=== PATIENT | male | born 1980 | race Caucasian/White ===

== ENCOUNTER 2019-11-30 10:17 | Emergency (ER) | payer BC, MEDICAID, SELFPAY ==
[2019-11-30 10:25] VITALS: BP 151/82; PULSE 87; RESP 14; TEMP 36.7; O2SAT 99
--- NOTE | 2019-11-30 10:48 | ED.URI ---
HPI - URI/Sore Throat General Chief Complaint: Upper Respiratory Infection Stated Complaint: Pnemonia Symptoms Time Seen by Provider: 11/30/19 10:48 Source: patient and RN notes reviewed History of Present Illness HPI Narrative: Patient is a 39-year-old male that presents the urgent care with complaints of cough, history of fever over the last 48 hours, and some intermittent shortness of breath. Patient states that he called his PCP this morning and he was told to rule out pneumonia at the local urgent care because their office was currently close to sick visits . Patient denies any travel over the last 14 days or being exposed to any known positive COVID patients or anyone out of the country for the last 14 days. 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 Patient has been using TheraFlu and Tylenol. No other acute complaints. No acute distress noted. Patient read the plan of care. Related Data Home Medications Medication Instructions Recorded Confirmed atenolol 50 mg PO DAILY 11/30/19 11/30/19 atorvastatin 10 mg PO DAILY 11/30/19 11/30/19 insulin glargine [Lantus U-100 22 unit SUBCUT HS 11/30/19 11/30/19 Insulin] metformin 1,000 mg PO DAILY 11/30/19 11/30/19 Allergies Allergy/AdvReac Type Severity Reaction Status Date / Time sumatriptan Allergy Intermediate Palpitation Verified 11/30/19 10:33 s Review of Systems Review of Systems: Narrative: CONSTITUTIONAL: Reports of intermittent fevers EYES: Denies visual changes, redness, or discharge. ENT: Denies rhinorrhea, congestion, sore throat, or otalgia. CARDIOVASCULAR: Denies chest pain, palpitations, or edema. RESPIRATORY: Reports of mild cough without dyspnea GASTROINTESTINAL: Denies abdominal pain, nausea, vomiting, or diarrhea. GENITOURINARY: Denies dysuria or hematuria. SKIN: Denies rash or itching. MUSCULOSKELETAL: Denies back pain, joint pain, or myalgia. NEUROLOGIC: Denies headache, numbness, or weakness. All other systems reviewed are negative, except as documented in HPI. PMFSH Comments At the time of my signature, I reviewed and agree with the nursing past medical, surgical, social, and family history. There is no relevant family history pertinent to the patient complaint. Exam Narrative: Exam Narrative: GENERAL: This is a well-nourished, well-developed patient, in no apparent distress. HEAD: normocephalic, atraumatic. EYES: PERRL. Sclera clear/white. Vision is grossly intact. EARS: External ears normal, auditory canals clear and without drainage, TMs normal without perforation. Hearing grossly intact. NOSE: External nose normal with no obvious nasal discharge, nares without redness, no rhinorrhea. THROAT: Mucous membranes moist, posterior pharynx clear. NECK: Neck supple, non-tender without lymphadenopathy, masses or thyromegaly. CARDIOVASCULAR: Regular rate and rhythm without murmurs, gallops, or rubs. RESPIRATORY: Clear to auscultation. Breath sounds equal bilaterally. No wheezes, rales, or rhonchi. SKIN: warm, intact with no suspicious lesions or rash, good texture and turgor. NEURO: awake, alert, and oriented to person, place and time. There were no obvious focal neurologic abnormalities. EXTREMITIES: No clubbing, cyanosis, or edema. Course Vital Signs Vital signs: Vital Signs Temperature 98.1 F 11/30/19 10:25 Pulse Rate 87 11/30/19 10:25 Respiratory Rate 14 11/30/19 10:25 Blood Pressure 151/82 H 11/30/19 10:25 Pulse Oximetry 99 11/30/19 10:25 Temperature 98.1 F 11/30/19 10:25 Pulse Rate 87 11/30/19 10:25 Respiratory Rate 14 11/30/19 10:25 Blood Pressure 151/82 H 11/30/19 10:25 Pulse Oximetry 99 11/30/19 10:25 Reviewed?patient is informed that they may have pre-hypertension or hypertension based on a blood pressure reading in the department. I recommend the patient call the primary care provider listed on their discharge instructions or a physician of their choice this week to
== END 2019-11-30 11:18 | disposition home or self-care (01) ==
PROVIDERS: Emergency Provider Nurse Practitioner Family
DX: R05 Cough (principal); E78.00 Pure hypercholesterolemia, unspecified; I10 Essential (primary) hypertension; E11.9 Type 2 diabetes mellitus without complications
CPT/HCPCS: 99211; G0463

== ENCOUNTER 2020-06-09 09:26 | Outpatient (CLI) | payer BC, MEDICAID, SELFPAY ==
--- NOTE | ~2020-06-09 | XR_ITS ---
EXAMINATION: XR lumbar spine 2-3V DATE: 06/09/2020 09:56 INDICATION: Low back pain and chronic right lower limb radiculopathy. TECHNIQUE: Anteroposterior and lateral views of the lumbar spine, and cone-down lateral view of the l umbosacral junction were obtained. COMPARISON: CT abdomen and pelvis dated 02/10/2019 FINDINGS: Alignment is normal. Chronic mild anterior wedging at T12 and L1. Moderate disc height loss at T12-L1 and mild disc height loss at T10-T11, L1-L2, L2-L3, L4-L5 and L5-S1. Mild to moderate lumbar facet o steoarthritis at L4-L5 and L5-S1. Sacrum and bilateral sacroiliac joints are normal. IMPRESSION: 1. Mild to moderate lumbar spondylosis. Reviewed, dictated and finalized at location A.
--- NOTE | ~2020-06-09 | XR_ITS ---
EXAMINATION:XR cervical spine 4-5V DATE: 06/09/2020 09:56 INDICATION: Neck pain TECHNIQUE: AP, lateral, lateral swimmers and odontoid views of the cervical spine are provided. COMPARISON: None FINDINGS: Alignment is normal. Odontoid is intact. Normal atlantoaxial interval. Vertebral body heights are no rmal. Mild disc height loss and moderate bilateral uncovertebral osteoarthritis at C5-C6. Small poste rior endplate osteophyte at this level results in mild central canal stenosis. Remaining disc heights are normal. Prevertebral soft tissues are normal. Visualized apices of the lungs are clear. IMPRESSION: 1. Mild spondylosis at C5-C6. Reviewed, dictated and finalized at location A.
== END 2020-06-09 09:27 | disposition home or self-care (01) ==
PROVIDERS: PCP Physician Assistant; Visit Provider Physician Assistant
DX: M54.2 Cervicalgia (principal); M54.5 Low back pain; M47.816 Spondylosis without myelopathy or radiculopathy, lumbar region; M47.812 Spondylosis without myelopathy or radiculopathy, cervical region
CPT/HCPCS: 72050; 72100

== ENCOUNTER 2020-07-21 08:26 | Outpatient (CLI) | payer BC, MEDICAID, SELFPAY ==
--- NOTE | ~2020-07-21 | MR_ITS ---
EXAMINATION: MR cervical spine wo con EXAM DATE: 07/21/2020 09:10 INDICATION: Neck pain. TECHNIQUE: Multi-sequential, multiplanar MR images of the cervical spine were obtained without contra st. Axial T2, axial T2 MERGE sequence. Sagittal T1, T2, T2 fat saturation images also obtained. Th ere is no prior study for comparison. FINDINGS: Large hemangioma within the T1 vertebral body. Mild disc disease at C5-6. The vertebral ramon dy and disc heights are otherwise well maintained. The vertebral bodies are aligned in the AP dimensi on. The spinal cord signal intensity and intrinsic morphology is normal. Cervicomedullary junction is normal in appearance. Paraspinal soft tissue is unremarkable. Level by level evaluation: C2-C3: Disc does not extend beyond the endplate margin. Uncovertebral joint arthropathy: None. Facet joint arthropathy: None. Neural foraminal stenosis: No stenosis. Central canal stenosis: No stenosis. C3-C4: Disc does not extend beyond the endplate margin. Uncovertebral joint arthropathy: None. Facet joint arthropathy: Mild. Neural foraminal stenosis: No stenosis. Central canal stenosis: No stenosis. C4-C5: Disc does not extend beyond the endplate margin. Uncovertebral joint arthropathy: None. Facet joint arthropathy: Mild. Neural foraminal stenosis: No stenosis. Central canal stenosis: No stenosis. C5-C6: There is a disc bulge asymmetric to the left. Uncovertebral joint arthropathy: Moderate to severe bilateral. Facet joint arthropathy: Mild bilateral. Neural foraminal stenosis: Severe right, moderate left. Central canal stenosis: Mild. C6-C7: There is a minimal diffuse disc bulge. Uncovertebral joint arthropathy: Mild bilateral. Facet joint arthropathy: Minimal bilateral. Neural foraminal stenosis: Mild right. Central canal stenosis: No stenosis. C7-T1: Disc does not extend beyond the endplate margin. Uncovertebral joint arthropathy: None. Facet joint arthropathy: Minimal. Neural foraminal stenosis: No stenosis. Central canal stenosis: No stenosis. IMPRESSION: 1. C5-6 severe right, moderate left neural foraminal stenosis. 2. Otherwise mild cervical spondylosis. Reviewed, dictated and finalized at location A. [employer] ANALYST
== END 2020-07-21 08:27 | disposition home or self-care (01) ==
LOC: ANHIMG 08:30
PROVIDERS: PCP Physician Assistant; Visit Provider Physician Assistant
DX: D18.09 Hemangioma of other sites (principal); M47.813 Spondylosis without myelopathy or radiculopathy, cervicothoracic region; M48.03 Spinal stenosis, cervicothoracic region
CPT/HCPCS: 72141

== ENCOUNTER 2020-09-15 09:43 | Outpatient (CLI) | payer BC, MEDICAID, SELFPAY ==
[2020-09-15 10:08] LABS: Basophils Absolute Auto 0.1 K/mm3 (0.0-0.1); Basophils Percent Auto 0.9 % (0.2-1.2); Eosinophils Absolute Auto 0.1 K/mm3 (0-0.3); Eosinophils Percent Auto 1.8 % (0-4.4); Hematocrit 47.3 % (42.0-52.0); Hemoglobin 15.9 g/dL (14.0-18.0); Immature Granulocyte Absolute 0.02 K/mm3 (0.00-0.031); Immature Granulocyte Percent A 0.3 % (0-0.5); Lymphocytes Absolute Auto 1.97 K/mm3 (0.9-3.2); Lymphocytes Percent Auto 27.9 % (18.3-44.2); Mean Corpuscular HGB Conc 33.6 g/dl (32-36); Mean Corpuscular Hemoglobin 27.7 pg (26-34); Mean Corpuscular Volume 82.5 fl (80-100); Mean Platelet Volume 9.4 fl (7.4-10.4); Monocytes Absolute Auto 0.5 K/mm3 (0.1-0.6); Monocytes Percent Auto 6.4 % (2.6-8.5); Neutrophils Absolute Auto 4.4 K/mm3 (1.3-6.7); Neutrophils Percent Auto 62.7 % (45.5-73.1); Platelet Count Result 213 k/mm3 (150-375); Red Blood Count 5.73 M/mm3 (4.6-6.20); Red Cell Distribution Width 12.4 % (11.5-14.5); White Blood Count 7.1 K/mm3 (4.5-10.0)
[2020-09-15 10:23] LABS: Alanine Aminotransferase 182 U/L (4-50); Albumin Level 4.5 g/dL (3.5-5.1); Alkaline Phosphatase 95 U/L (38-126); Anion Gap 6 mmol/L (8-16); Aspartate Amino Transferase 93 U/L (17-59); Bilirubin,Total 0.8 mg/dL (0.2-1.3); Blood Urea Nitrogen 17 mg/dL (9-20); Calcium 9.7 mg/dL (8.4-10.2); Carbon Dioxide 31 mmol/L (22-30); Chloride 99 mmol/L (98-107); Cholesterol 224 mg/dL (0-200); Estimated Glomerular Filt Rate > 60; Glucose 297 mg/dL (75-110); HDL Direct 34 mg/dL; Potassium 5.1 mmol/L (3.4-5.0); Sodium 136 mmol/L (137-145); Triglycerides 254 mg/dL (<150)
[2020-09-15 10:33] LABS: LDL Cholesterol Direct 124 mg/dL
[2020-09-15 10:45] LABS: Creatinine Urine 136.6 mg/dL
[2020-09-15 10:47] LABS: MALB Creatinine Ratio 7.7 mg/g (0-30); Microalbumin Urine Random 10.5 mg/L (0-16.7)
[2020-09-20 12:24] LABS: Testosterone Free 52.4 pg/mL (35.0-155.0); Testosterone Total 280 ng/dL (250-1100)
== END 2020-09-15 09:44 | disposition home or self-care (01) ==
PROVIDERS: PCP Physician Assistant; Visit Provider Physician Assistant
DX: E11.9 Type 2 diabetes mellitus without complications (principal); R79.89 Other specified abnormal findings of blood chemistry
CPT/HCPCS: 36415; 80053; 80061; 82043; 83036; 84402; 84403; 85025

== ENCOUNTER 2020-12-13 10:13 | Outpatient (CLI) | payer BC, MEDICAID, SELFPAY ==
--- NOTE | ~2020-12-13 | XR_ITS ---
EXAMINATION:XR_CERV2-3V_CR DATE: 12/13/2020 10:44 INDICATION: Status post cervical fusion. TECHNIQUE: AP and lateral views of the cervical spine are provided. COMPARISON: 06/09/2020 FINDINGS: Interval anterior spinal fusion at the previously mild narrowed C5-C6 disc space. The disc space is n ow normal with marker for a lucent bone graft cage and anterior plate and screw fixation. A prior pos terior osteophyte arising from the inferior aspect of C5 has also been resected. Alignment is normal. Odontoid is intact. Normal atlantoaxial interval. Vertebral body heights are normal. Remaining disc spaces are normal. There is swelling of the prevertebral soft tissues centered at the level of the C 5-C6 anterior spinal fusion with small focus of gas in the soft tissues. IMPRESSION: 1. Soft tissue swelling and small amount of gas in the lower cervical prevertebral soft tissues posto perative in etiology given a new instrumentation anterior spinal fusion procedure at C5-C6 which was reportedly performed one week prior on 12/05/2020. Reviewed, dictated and finalized at location B. IMPRESSION: 1. Soft tissue swelling and small amount of gas in the lower cervical preverteb ral soft tissues postoperative in etiology given a new instrumentation anterior spinal fusion procedure at C5-C6 which was reportedly performed one week prior on 12/05/2020.
== END 2020-12-13 10:14 | disposition home or self-care (01) ==
LOC: ANHIMG 10:19
PROVIDERS: PCP Physician Assistant; Visit Provider Neurological Surgery
DX: Z98.1 Arthrodesis status (principal); M79.89 Other specified soft tissue disorders
CPT/HCPCS: 72040

== ENCOUNTER 2022-04-01 06:34 | Emergency (ER) | payer BC, OTHER, SELFPAY ==
[2022-04-01] VITALS (20 sets, daily range): BP systolic 128–159; BP diastolic 83–97; PULSE 105; RESP 18; TEMP 36.9; O2SAT 92–98
--- NOTE | ~2022-04-01 | CT_ITS ---
EXAMINATION: CT abdomen pelvis w con DATE: 04/01/2022 08:58 INDICATION: Intermittent right upper quadrant abdominal pain for 2 or 3 months, nausea and vomiting f or 2 to 3 hours. History of kidney stones. TECHNIQUE: Computed tomography (CT) of the abdomen and pelvis was performed with 100 CC Omnipaque 300 intravenous contrast. Automated exposure control and iterative reconstruction technique were employe d. Exam dose: 735.46 mGy-cm total exam DLP. COMPARISON: 04/01/2022 Limited abdominal ultrasound 02/10/2019 KUB 6. Slice 02/[address] abdomen pelvis FINDINGS: Chronic discoid scarring in the right anterior basilar lower lobe and mild bilateral lower lobe atelectasis. Normal heart size. No pericardial effusion. No pleural effusion. Diffuse hepatic steatosis. No hepatic, splenic, pancreatic, adrenal space-occupying mass lesion. The gallbladder is unremarkable. No bile duct or pancreatic duct dilatation. There are 3 up to approximately 2 mm nonobstructing right renal calculi There are 2 up to approximately 2.5 mm nonobstructing left renal calculi. No ureteral or urinary bladder calculus or hydroureteronephrosis of either kidney. 14 mm and 5 mm upper pole right renal cysts. 8 mm lower pole left renal cyst. Normal caliber of the abdominal aorta. No intraperitoneal or retroperitoneal or pelvic mass lesion or adenopathy or ascites. Normal appendix. No bowel obstruction, bowel wall thickening, pneumatosis or intraperitoneal free air . There is evidence of bilateral inguinal herniorrhaphy. Very small fat-containing umbilical hernia. Occasional osteosclerotic lesions including one measuring up to 1 cm in the right femoral head, most likely bone islands. If there is any concern for osteosclerotic metastatic disease clinically, consid er radionuclide bone scan. Mild degenerative changes of the lower thoracic and lumbar spine. No suspicious lytic lesions. IMPRESSION: Chronic right anterior basilar discoid scarring and mild bilateral lower lobe atelectasi s Diffuse hepatic steatosis Bilateral nonobstructive nephrolithiasis; no ureteral calculus or hydroureteronephrosis Normal appendix No bowel obstruction or free air Status post bilateral inguinal herniorrhaphy Occasional osseous chronic lesions, most likely bone islands; if there is concern for osteosclerotic metastatic disease as with prostate cancer, radionuclide bone scan may be of benefit Reviewed, dictated and finalized at Location A. Reviewed, dictated and finalized at location A. IMPRESSION: Chronic right anterior basilar discoid scarring and mild bilateral lower lobe atelectasis Diffuse hepatic steatosis Bilateral nonobstructive nephrolithiasis; no ureteral calculus or hydroureteron ephrosis Normal appendix No bowel obstruction or free air Status post bilateral inguinal herniorrhaphy Occasional osseous chronic lesions, most likely bone islands; if there is juan rn for osteosclerotic metastatic disease as with prostate cancer, radionuclide bone scan may be of benefit
--- NOTE | ~2022-04-01 | US_ITS ---
EXAMINATION: US abdomen limited DATE: 04/01/2022 08:18 INDICATION: Right upper quadrant abdominal pain TECHNIQUE: Multiple grayscale and Doppler ultrasound images of the abdomen were obtained. COMPARISON: CT dated 02/10/2019 FINDINGS: The pancreatic head and body are normal in appearance. The pancreatic tail is not visualized. Liver has normal contour, with a smooth surface. There is increased parenchymal echogenicity and coarsened echotexture consistent with diffuse hepatic steatosis. No liver lesion identified. No intrahepatic b iliary duct dilation suspected. Portal venous flow was seen in the hepatopetal, normal direction and has normal Doppler waveform. The gallbladder is normal in appearance. There is no cholelithiasis. Th e common bile duct measures 4-5 mm, which is normal. Sonographic Bermeo sign was reported as negative by the risk management specialist. IMPRESSION: 1. Diffuse hepatic steatosis. Reviewed, dictated and finalized at location A.
[2022-04-01 07:02] LABS: Basophils Absolute Auto 0.1 K/mm3 (0.0-0.1); Basophils Percent Auto 0.3 % (0.2-1.2); Eosinophils Absolute Auto 0.3 K/mm3 (0-0.3); Eosinophils Percent Auto 1.3 % (0-4.4); Hematocrit 50.3 % (42.0-52.0); Hemoglobin 16.6 g/dL (14.0-18.0); Immature Granulocyte Absolute 0.06 K/mm3 (0.00-0.031); Immature Granulocyte Percent A 0.3 % (0-0.5); Lymphocytes Absolute Auto 1.43 K/mm3 (0.9-3.2); Lymphocytes Percent Auto 7.6 % (18.3-44.2); Mean Corpuscular Hemoglobin 27.6 pg (26-34); Mean Corpuscular Volume 83.7 fl (80-100); Mean Platelet Volume 9.3 fl (7.4-10.4); Monocytes Absolute Auto 1.5 K/mm3 (0.1-0.6); Neutrophils Absolute Auto 15.5 K/mm3 (1.3-6.7); Neutrophils Percent Auto 82.5 % (45.5-73.1); Platelet Count Result 258 k/mm3 (150-375); Red Blood Count 6.01 M/mm3 (4.6-6.20); Red Cell Distribution Width 13.5 % (11.5-14.5); White Blood Count 18.8 K/mm3 (4.5-10.0)
[2022-04-01 07:03] LABS: Appearance Urine Clear (Clear); Bilirubin Urine Negative (Negative); Blood Urine Negative (Negative); Color Urine Yellow (Yellow); Glucose Urine UA 2+ mg/dL (Negative); Ketones Urine Trace mg/dL (Negative); Leukocyte Esterase Ur Negative LEU/UL (Negative); Nitrate Urine Negative (Negative); Protein Urine Negative (Negative); Specific Grav Ur 1.015 (1.001-1.035); Urobilinogen Urine 0.2 mg/dL (<2.0); pH Urine 5.5 (5.0-9.0)
[2022-04-01 07:06] LABS: Mucus Urine Rare /lpf; RBC Urine 0-2 /hpf (0-2); WBC Urine 0-3 /hpf
[2022-04-01 07:11] LABS: Alanine Aminotransferase 83 U/L (6-50); Albumin Level 4.7 g/dL (3.5-5.1); Alkaline Phosphatase 87 U/L (38-126); Anion Gap 11 mmol/L (8-16); Aspartate Amino Transferase 50 U/L (17-59); Bilirubin,Total 0.6 mg/dL (0.2-1.3); Blood Urea Nitrogen 18 mg/dL (9-20); Calcium 9.8 mg/dL (8.4-10.2); Carbon Dioxide 27 mmol/L (22-30); Chloride 102 mmol/L (98-107); Estimated CRCL calculation 116 ml/min; Estimated Glomerular Filt Rate > 60; Glucose 178 mg/dL (65-110); Lipase 106 U/L (23-300); Potassium 4.6 mmol/L (3.4-5.0); Sodium 140 mmol/L (137-145)
[2022-04-01 07:24] LABS: Add Urine Microscopic? YES
--- NOTE | 2022-04-01 07:33 | ED.GENADULT ---
HPI - General Adult General Chief complaint: Nausea/Vomiting/Diarrhea Stated complaint: abd pain with n/v x 3 months Time Seen by Provider: 04/01/22 07:08 History of Present Illness HPI narrative: Patient is a 41-year-old male who presents ER with right upper quadrant abdominal pain. Began at 2 AM. No radiation. Sharp in nature. Reports he has had it intermittently over the last couple months. First noticed it when he ate [employer] pizza and then later when he ate [employer] pizza. Reports he has tried Tums and Pepto-Bismol without improvement. He was evaluated at an outside hospital was found to have bilateral nonobstructing renal calculi. Patient was given Zofran at that time which has helped him when he has nausea. Related Data Home Medications Medication Instructions Recorded Confirmed atenolol 50 mg tablet 50 mg PO DAILY 11/30/19 11/30/19 atorvastatin 10 mg tablet 10 mg PO DAILY 11/30/19 11/30/19 insulin glargine 100 unit/mL 22 unit subcut HS 11/30/19 11/30/19 subcutaneous solution (Lantus U-100 Insulin) metformin 1,000 mg tablet 1,000 mg PO DAILY 11/30/19 11/30/19 Allergies Allergy/AdvReac Type Severity Reaction Status Date / Time sumatriptan Allergy Intermediate Palpitation Verified 04/01/22 06:45 s Review of Systems Review of Systems: All systems reviewed & are unremarkable except as noted in HPI and below Constitutional: Constitutional: Denies chills and Denies fever(s) Cardiovascular: Cardiovascular: Denies chest pain and Denies radiating jaw, neck or arm pain Gastrointestinal: Gastrointestinal: Reports abdominal pain, Reports nausea and Denies vomiting Genitourinary: Genitourinary: Denies hematuria, Denies dysuria and Denies urinary frequency [facility] Past Medical History Medical History (Updated 04/01/22 @ 10:17 by Damon Robledo MD) Diabetes Hypertension Kidney stones Surgical History Surgical History (Updated 04/01/22 @ 07:41 by Damon Robledo MD) H/O bilateral inguinal hernia repair H/O neck surgery History of carpal tunnel release of both wrists History of lithotripsy Social History Social History (Updated 04/01/22 @ 07:43 by Damon Robledo MD) Tobacco type: e-cigarettes/vaping Exam Narrative: GENERAL: Well-appearing, well-nourished, and in no acute distress. HEAD: Normocephalic, atraumatic. EYES: PERRL and EOMI. CHEST: Clear to auscultation. No respiratory distress. HEART: Regular rate and rhythm. Normal peripheral pulses. ABDOMEN: Soft, nontender, nondistended. EXTREMITIES: Normal range of motion. No edema. SKIN: Warm, dry, no rash. NEURO: Alert and oriented x3. PSYCH: Normal mood and affect. Course Course Emergency Course: Patient resting comfortably and without pain. Head several episodes of vomiting earlier this morning which may have caused his elevated white blood cell count. Otherwise no evidence of infection. Will treat for peptic ulcer with twice daily Protonix. Recommend follow-up with PCP and possible need for GI referral. Vital Signs Vital signs: Vital Signs Temperature 98.4 F 04/01/22 06:41 Pulse Rate 105 H 04/01/22 06:41 Respiratory Rate 18 04/01/22 06:41 Blood Pressure 136/95 H 04/01/22 06:41 Pulse Oximetry 98 04/01/22 06:41 Oxygen Delivery Room Air 04/01/22 06:41 Temperature 98.4 F 04/01/22 06:41 Pulse Rate 105 H 04/01/22 06:41 Respiratory Rate 18 04/01/22 06:41 Blood Pressure 136/95 H 04/01/22 06:41 Pulse Oximetry 98 04/01/22 06:41 Oxygen Delivery Room Air 04/01/22 06:41 Medical Decision Making Vital Signs Vital Signs: Vital Signs Temperature 98.4 F 04/01/22 06:41 Pulse Rate 105 H 04/01/22 06:41 Respiratory Rate 18 04/01/22 06:41 Blood Pressure 136/95 H 04/01/22 06:41 Pulse Oximetry 98 04/01/22 06:41 Oxygen Delivery Room Air 04/01/22 06:41 Temperature 98.4 F 04/01/22 06:41 Pulse Rate 105 H 04/01/22 06:41 Respiratory Rate 18 03/08
== END 2022-04-01 10:31 | disposition home or self-care (01) ==
PROVIDERS: Emergency Provider Emergency Medicine; PCP Physician Assistant
DX: R10.11 Right upper quadrant pain (principal); E11.9 Type 2 diabetes mellitus without complications; I10 Essential (primary) hypertension; F17.290 Nicotine dependence, other tobacco product, uncomplicated; Z87.442 Personal history of urinary calculi; K76.0 Fatty (change of) liver, not elsewhere classified; N20.0 Calculus of kidney; M89.9 Disorder of bone, unspecified; Z79.4 Long term (current) use of insulin; Z79.84 Long term (current) use of oral hypoglycemic drugs
CPT/HCPCS: 36415; 74177; 76705; 80053; 81001; 83690; 85025; 99284; Q9967

== ENCOUNTER 2023-12-09 14:22 | Emergency (ER) | payer OTHER, BC, SELFPAY ==
--- NOTE | ~2023-12-09 | XR_ITS ---
EXAMINATION: XR shoulder LT min 2V DATE: 12/09/2023 15:06 INDICATION: Left shoulder pain. TECHNIQUE: 4 views of left shoulder were obtained. COMPARISON: None. FINDINGS: Bone alignment is normal. No fracture. Joint spaces are normal. There are changes of anteri or fusion procedure in cervical spine. IMPRESSION: 1. Normal left shoulder. Reviewed, dictated and finalized at location A. IMPRESSION: 1. Normal left shoulder.
[2023-12-09 14:29] VITALS: BP 131/76; PULSE 103; RESP 18; TEMP 36.3; O2SAT 97
[2023-12-09] MEDS: KETOROLAC (*BKC) 60 MG/2 ML VIAL IM (15:07)
--- NOTE | 2023-12-09 15:48 | ED.UPPEXIN ---
HPI - Extremity Injury (Upper) General Chief Complaint: Extremity Injury, Upper Stated Complaint: left shoulder pain Time Seen by Provider: 12/09/23 14:34 History of Present Illness HPI narrative: Patient is a 43-year-old male who presents ER with left shoulder pain. He was at work using a [employer] to move some coils when they lost her balance and it wally his left shoulder. He was concerned he dislocated it. It occurred around 8:00 a.m.. No numbness or tingling to the arm but has limited range motion due to pain both anteriorly and posteriorly. Related Data Home Medications Medication Instructions Recorded Confirmed atenolol 50 mg tablet 50 mg PO DAILY 11/30/19 11/30/19 atorvastatin 10 mg tablet 10 mg PO DAILY 11/30/19 11/30/19 insulin glargine 100 unit/mL 22 unit subcut HS 11/30/19 11/30/19 subcutaneous solution (Lantus U-100 Insulin) metformin 1,000 mg tablet 1,000 mg PO DAILY 11/30/19 11/30/19 Allergies Allergy/AdvReac Type Severity Reaction Status Date / Time sumatriptan Allergy Intermediate Palpitation Verified 12/09/23 15:10 s Review of Systems Constitutional: Constitutional: Reports no additional constitutional complaints ENT: Reports system reviewed and no additional complaints, except as documented Cardiovascular: Cardiovascular: Reports no additional cardiovascular complaints Musculoskeletal: Musculoskeletal: Denies myalgias, Reports arthralgias and Denies joint swelling PMFSH Past Medical History Medical History (Updated 12/09/23 @ 15:50 by Damon Robledo MD) Diabetes Hypertension Kidney stones Surgical History Surgical History (Updated 04/01/22 @ 07:41 by Damon Robledo MD) H/O bilateral inguinal hernia repair H/O neck surgery History of carpal tunnel release of both wrists History of lithotripsy Social History Social History (Updated 04/01/22 @ 07:43 by Damon Robledo MD) Tobacco type: e-cigarettes/vaping Exam Narrative: GENERAL: Well-appearing, well-nourished, and in no acute distress. HEAD: Normocephalic, atraumatic. CHEST: Clear to auscultation. No respiratory distress. HEART: Regular rate and rhythm. Normal peripheral pulses. EXTREMITIES: Left shoulder exam with mild discomfort over anterior aspect of the shoulder but not involving the AC process. There is mild discomfort over the rhomboid musculature but not necessarily the scapula or posterior shoulder. Internal external rotation intact. Patient has increased pain with abduction and firing of the deltoid. SKIN: Warm, dry, no rash. NEURO: No focal deficits. Alert and oriented x3. PSYCH: Normal mood and affect. Course Course Emergency Course: Recommend conservative treatment with anti-inflammatories muscle relaxers. No fracture or dislocation on x-ray. 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 Vital Signs Vital signs: Vital Signs Temperature 97.3 F L 12/09/23 14:29 Pulse Rate 103 H 12/09/23 14:29 Respiratory Rate 18 12/09/23 14:29 Blood Pressure 131/76 12/09/23 14:29 Pulse Oximetry 97 12/09/23 14:29 Temperature 97.3 F L 12/09/23 14:29 Pulse Rate 103 H 12/09/23 14:29 Respiratory Rate 18 12/09/23 14:29 Blood Pressure 131/76 12/09/23 14:29 Pulse Oximetry 97 12/09/23 14:29 MDM - Extremity Injury (Upper) Imaging Data Radiologist's impression: ITS Impressions Shoulder X-Ray 12/09/23 15:07 IMPRESSION: 1. Normal left shoulder. Discharge Plan Discharge Clinical Impression: Shoulder sprain Patient Disposition: Home, Self-Care Condition: Stable Instructions: Shoulder Sprain (ED), Exercises for Shoulder Flexion and Extension (ED), Exercises for Shoulder Abduction and Adduction (ED) Additional Instructions: Return ER if you suffered any injury, you have new focal weakness or numbness Charm, or you have additional concerns. Take anti-inflammatory medication for discomfo
== END 2023-12-09 16:08 | disposition home or self-care (01) ==
PROVIDERS: Emergency Provider Emergency Medicine; PCP Physician Assistant
DX: S43.402A Unspecified sprain of left shoulder joint, initial encounter (principal); E11.9 Type 2 diabetes mellitus without complications; I10 Essential (primary) hypertension; Z87.442 Personal history of urinary calculi; F17.290 Nicotine dependence, other tobacco product, uncomplicated; Z79.4 Long term (current) use of insulin; Z79.84 Long term (current) use of oral hypoglycemic drugs; X50.9XXA Other and unspecified overexertion or strenuous movements or postures, initial encounter
CPT/HCPCS: 73030; 96372; 99283; J1885